=== PATIENT | female | born 1990 | race Caucasian/White ===

== ENCOUNTER 2021-11-15 08:00 | Outpatient (CLI) | payer OTHER ==
--- NOTE | 2021-11-15 22:02 | XRAY Report ---
PROCEDURE: Finger(s) RT INDICATIONS: FINGER PAIN, RIGHT 4TH DIGIT TECHNIQUE: AP hand, 2 views of the fourth finger(s) acquired. COMPARISON: None FINDINGS: Bones: Minimally displaced, intra-articular fractures can be seen involving the proximal base of the middle phalanx of the fourth finger, which is only seen on the lateral image. The fracture lines have a subacute appearance. No suspicious bony lesions. Soft tissues: No suspicious soft tissue calcifications. IMPRESSION: Minimally displaced intra-articular fractures can be seen involving the proximal base of the middle p halanx of the fourth finger. Reviewed by: Jarvis Vo MD on 11/15/2021 9:01 PM STEWART Approved by: Jarvis Vo MD on 11/15/2021 9:01 PM STEWART Station ID: [id number]
== END 2021-11-15 23:59 | disposition home or self-care (01) ==
LOC: DI.N 08:00
PROVIDERS: ATTEND Nurse Practitioner Family
DX: S62.624A Displaced fracture of middle phalanx of right ring finger, initial encounter for closed fracture (principal)

== ENCOUNTER 2021-12-08 09:00 | Emergency (ER) | payer OTHER ==
[2021-12-08] MEDS ORDERED: ONDANSETRON ODT 4 MG TABLET TL STA (11:47)
[2021-12-08 11:50] VITALS: BP 140/91
--- NOTE | 2021-12-08 11:55 | ED Physician Documentation ---
History of Present Illness - Stated complaint Stated Complaint: MHE - Chief complaint Chief Complaint: Abd Pain - Additonal information Additional information: 31-year-old female presents emergency department for evaluation of depression, nausea and anorexia. She states that she has a longstanding history of depression but she has never had thoughts of self-harm to herself. She went to a [employer] last night drink heavily and consumed a large amount of weed. When she woke up this morning she was not feeling well and was quite nauseated. She felt her depression was worse but did not explicitly want to hurt herself. She is worried because she really has no appetite so she comes to the emergency department. Denies possibility of as her is deployed and she has not been sexually active for a number of months. Review of Systems Constitutional: denies: Fever, Chills Eyes: reports: Reviewed and negative Nose: reports: Reviewed and negative Throat: reports: Reviewed and negative Cardiac: reports: Reviewed and negative Respiratory: reports: Reviewed and negative GI: reports: Nausea. denies: Vomiting, Constipation Neurologic: reports: Reviewed and negative Psychiatric: reports: Depressed. denies: Suicidal, Homicidal, Hallucinations, Delusions, Anxiety PD PAST MEDICAL HISTORY - Present Medications Home Medications: Ambulatory Orders Medication Instructions Recorded Confirmed Ondansetron Odt [Zofran Odt] 4 mg TL Q6H PRN #10 tablet 12/08/21 - Allergies Allergies/Adverse Reactions: Allergies Allergy/AdvReac Type Severity Reaction Status Date / Time No Known Drug Allergies Allergy Verified 12/08/21 09:24 PD ED PE NORMAL - General General: Alert and oriented X 3, No acute distress, Well developed/nourished (Obese) - HEENT HEENT: Atraumatic, Moist mucous membranes - Neck Neck: Supple, no meningeal sign, No adenopathy - Cardiac Cardiac: RRR, No murmur - Respiratory Respiratory: No respiratory distress, Clear bilaterally - Abdomen Abdomen: Normal bowel sounds, Soft, Non tender - Female Female : Deferred, Pt declined - Derm Derm: Normal color, Warm and dry - Extremities Extremities: No deformity, No tenderness to palpate, Normal ROM s pain - Neuro Neuro: Alert and oriented X 3 Eye Opening: Spontaneous Motor: Obeys Commands Verbal: Oriented GCS Score: 15 Results - Vitals Vitals: Vital Signs - 24 hr 12/08/21 12/08/21 09:18 11:49 Temperature 36.0 C L 36.6 C Heart Rate 110 H 87 Respiratory 20 16 Rate Blood Pressure 165/88 H 140/91 H O2 Saturation 98 100 Oxygen O2 Source Room air PD MEDICAL DECISION MAKING - ED course Complexity details: considered differential, d/w patient ED course: 31-year-old female presents emergency department with anorexia and nausea after a heavy night of drinking and cannabis consumption. Initial triage note indicates concern for self-harm though patient is quite adamant with this provider that she does not want to harm herself. She simply does not feel well. She is administered 8 mg of Zofran and on reassessment tolerating sips of clear liquids. She does not wish to remain in the emergency department for mental health evaluation. She clearly has capacity to make this decision and I do not feel it is important to compel her to stay. She reports that she has good follow-up with [facility] and there are a lot of support services for spouses which she is going to engage in. She was told that if nausea worsened she could return to the ER if any thoughts of self-harm occurred she could return to the ER. She is comfortable with discharge home Departure - Departure Disposition: 01 Home, Self Care Clinical Impression: Nausea Depression Qualifiers: Depression Type: unspecified Qualified Code(s): F32.A - Depression, unspecified Condition: Stable Record reviewed to determine appropriate education?: Yes Prescriptions: Ondansetron Odt [Zofran Odt] 4 mg TL Q6H PRN #10 tablet PRN Reason: Nausea / Vomiting Comments: Kacy you are seen today in the emergency department after a night of heavy drinking and cannabis consumption. You presented somewhat depressed but did not end Dors that you had thoughts of harming yourself. Anorexia can be common and depression and can certainly be worse after heavy drinking. You were given some Zofran here in the emergency department Over the next 24 hours I recommend frequent sips of clear liquids such as 7-Up, nazario braxton water, juice or Gatorade. I am sending a prescription for some Zofran to the [facility] in [place]. I do recommend that you follow-up with your primary providers for evaluation of your depression. There are a lot of [employer] resources for spouses that are deployed which you may find very helpful. If at any point you feel unsafe please return immediately to the ER for a second evaluation.
== END 2021-12-08 12:03 | disposition home or self-care (01) ==
LOC: ED 09:00
DX: F32.A Depression, unspecified (principal); R11.0 Nausea
CPT/HCPCS: 99282; Q0162

== ENCOUNTER 2022-01-07 10:15 | Outpatient (CLI) | payer OTHER ==
--- NOTE | 2022-01-07 16:33 | XRAY Report ---
PROCEDURE: Finger(s) RT INDICATIONS: RIGHT 4TH FINGER FX TECHNIQUE: AP hand, 3 views of the 4 finger(s) acquired. COMPARISON: X-ray finger 11/15/2021 FINDINGS: Bones: There has been interval healing with stable alignment of previous fracture identified at the b ase of the fourth middle phalanx with intra-articular extension. No suspicious bony lesions. Soft tissues: No suspicious soft tissue calcifications. IMPRESSION: Interval healing with less prominent appearance of fracture lucencies of intra-articular middle phala nx fracture. Reviewed by: Zahira Lewis MD on 01/07/2022 4:31 PM PDT Approved by: Zahira Lewis MD on 01/07/2022 4:31 PM PDT Station ID: [id number]
== END 2022-01-07 10:16 | disposition home or self-care (01) ==
LOC: DI.WOS 10:15
PROVIDERS: ATTEND Orthopaedic Surgery
DX: S62.654D Nondisplaced fracture of middle phalanx of right ring finger, subsequent encounter for fracture with routine healing (principal)

== ENCOUNTER 2022-04-17 08:58 | Emergency (ER) | payer OTHER ==
[2022-04-17] MEDS ORDERED: KETOROLAC 30 MG/ML VIAL IVP STA (09:53)
[2022-04-17] MEDS ORDERED: diphenhydrAMINE INJ 50 MG/ML VIAL IVP STA (09:53)
[2022-04-17] MEDS ORDERED: PROCHLORPERAZINE 10 MG/2 ML VIAL IVP STA (09:53)
[2022-04-17] MEDS ORDERED: SODIUM CHLORIDE 0.9% 1,000 ML IV STA (09:53)
[2022-04-17] MEDS ORDERED: DEXAMETHASONE 10 MG/ML VIAL IVP STA (09:53)
--- NOTE | 2022-04-17 09:56 | ED Physician Documentation ---
PD HPI HEADACHE - Stated complaint Stated Complaint: NAUSEA/MIGRAINE - Chief complaint Chief Complaint: Neuro - History obtained from History obtained from: Patient, Family - History of Present Illness Timing - onset: Enter time (529), Today Timing - onset during: Sleep Timing - duration: Hours Timing - details: Abrupt onset, Still present Worst headache ever?: No: Worst headache ever? Location: Other (top) Quality: Like head is exploding Associated symptoms: Stiff neck, Nausea, Vomiting. No: Fever, Weakness, Numbness, Syncope, Seizure, Eye pain, Vision changes Improved by: Rest, Dark room, Quiet, Meds Worsened by: Light, Noise, Moving Similar symptoms before: Diagnosis (migraine) Recently seen: Other (urgent care.) - Additional information Additional information: 31-year-old Andrew Leblanc has a history of migraine headaches and she woke this morning at 5:30 AM with a headache nausea and vomiting. She took her rizatriptan and Zofran without change in her symptoms. She has had some chills and sweats and overall body pain associated with this. She has had to have migraine rescue previously. She gets migraines about once every 2 to 3 months. She has been in to see the urgent care about neck stiffness about 1 month ago and was given a shot and something to drink. She has had steady improvement but continues to have some stiffness to her neck. Review of Systems Constitutional: reports: Sweats. denies: Fever Eyes: reports: Photophobia. denies: Decreased vision Ears: denies: Ear pain Nose: denies: Rhinorrhea / runny nose, Congestion Throat: denies: Sore throat Cardiac: denies: Chest pain / pressure, Palpitations Respiratory: denies: Dyspnea, Cough, Wheezing GI: reports: Nausea, Vomiting. denies: Abdominal Pain, Constipation, Diarrhea : denies: Dysuria, Frequency Skin: denies: Rash Musculoskeletal: reports: Neck pain. denies: Back pain, Extremity pain PD PAST MEDICAL HISTORY - Present Medications Home Medications: Ambulatory Orders Medication Instructions Recorded Confirmed Ondansetron Odt [Zofran Odt] 4 mg TL Q6H PRN #10 tablet 12/08/21 04/17/22 PARoxetine [Paxil] 10 mg PO DAILY 04/17/22 04/17/22 - Allergies Allergies/Adverse Reactions: Allergies Allergy/AdvReac Type Severity Reaction Status Date / Time No Known Drug Allergies Allergy Verified 04/17/22 09:08 PD ED PE NORMAL - Vitals Vital signs reviewed: Yes (hypertnesive ) - General General: Alert and oriented X 3, No acute distress, Well developed/nourished - HEENT HEENT: Atraumatic, PERRL, EOMI - Neck Neck: Supple, no meningeal sign, No bony TTP, Other (mild tenderness to the paraspinous muscles of the neck bilat) - Cardiac Cardiac: RRR, No murmur - Respiratory Respiratory: No respiratory distress, Clear bilaterally - Abdomen Abdomen: Normal bowel sounds, Soft, Non tender, Non distended, No organomegaly - Back Back: No CVA TTP, No spinal TTP - Derm Derm: Normal color, Warm and dry, No rash - Extremities Extremities: No deformity, No edema - Neuro Neuro: Alert and oriented X 3, prime minister 2-12 intact, No motor deficit, No sensory deficit, Normal speech Eye Opening: Spontaneous Motor: Obeys Commands Verbal: Oriented GCS Score: 15 - Psych Psych: Normal mood, Normal affect Results - Vitals Vitals: Vital Signs - 24 hr 04/17/22 09:05 Temperature 36.5 C Heart Rate 88 Respiratory 16 Rate Blood Pressure 137/98 H O2 Saturation 99 Oxygen O2 Source Room air PD MEDICAL DECISION MAKING - ED course Complexity details: reviewed old records, re-evaluated patient, considered differential, d/w patient, d/w family ED course: 31-year-old female with a history of migraines has a migraine again today and she is provided a migraine rescue with saline, Compazine, Benadryl, Toradol and dexamethasone. Departure - Departure Disposition: 01 Home, Self Care Clinical Impression: Migraine Qualifiers: Migraine type: without aura Status migrainosus presence: without status migrainosus Intractability: not intractable Qualified Code(s): G43.009 - Migraine without aura, not intractable, without status migrainosus Condition: Stable Instructions: ED Headache Migraine Follow-Up: Anh Gross PA-C [Primary Care Provider] -
[2022-04-17 10:57] VITALS: BP 131/80
== END 2022-04-17 10:56 | disposition home or self-care (01) ==
LOC: ED 08:58
DX: G43.009 Migraine without aura, not intractable, without status migrainosus (principal)
CPT/HCPCS: 36415; 96374; 96375; 99282; 99285; J1200

== ENCOUNTER 2022-09-25 14:11 | Outpatient (CLI) | payer OTHER ==
[2022-09-25 14:31] LABS: BASOPHILS # (AUTO) 0.1 10^3/uL (0.0-0.1); BASOPHILS % (AUTO) 0.7 %; EOSINOPHILS # (AUTO) 0.3 10^3/uL (0.0-0.7); HCT - HEMATOCRIT 49.6 % (37.0-47.0); HGB - HEMOGLOBIN 15.7 g/dL (12.0-16.0); LYMPHOCYTES # (AUTO) 2.7 10^3/uL (1.5-3.5); LYMPHOCYTES % (AUTO) 32.9 %; MEAN CORPUSCULAR HEMOGLOBIN 27.6 pg (27.0-31.0); MEAN CORPUSCULAR HGB CONC 31.7 g/dL (32.0-36.0); MEAN CORPUSCULAR VOLUME 87.3 fL (81.0-99.0); MEAN PLATELET VOLUME 9.3 fL (7.9-10.8); MONOCYTES # (AUTO) 0.6 10^3/uL (0.0-1.0); MONOCYTES % (AUTO) 7.4 %; NEUTROPHILS # (AUTO) 4.5 10^3/uL (1.5-6.6); NEUTROPHILS % (AUTO) 54.8 %; PLT - PLATELET COUNT 324 10^3/uL (130-450); RED BLOOD COUNT 5.68 10^6/uL (4.20-5.40); RED CELL DISTRIBUTION WIDTH 13.6 % (12.0-15.0); WHITE BLOOD COUNT 8.2 x10^3/uL (4.8-10.8)
[2022-09-25 14:50] LABS: ALBUMIN 4.2 g/dL (3.2-5.5); ALBUMIN/GLOBULIN RATIO 1.2 (1.0-2.2); BILIRUBIN,TOTAL 1.1 mg/dL (0.2-1.0); CALCIUM 9.5 mg/dL (8.5-10.3); CREATININE 0.7 mg/dL (0.4-1.0); POTASSIUM 4.8 mmol/L (3.5-5.0); TOTAL PROTEIN 7.7 g/dL (6.7-8.2)
[2022-09-25 14:55] LABS: THYROID STIMULATING HORMONE 0.33 uIU/mL (0.34-5.60)
[2022-09-25 15:27] LABS: FREE T4 (FREE THYROXINE) 0.78 ng/dL (0.58-1.64)
--- NOTE | 2022-09-25 16:51 | XRAY Report ---
PROCEDURE: Cervical Spine 2 View INDICATIONS: NECK PAIN,CHRONIC TECHNIQUE: 3 view(s) of the cervical spine were acquired. COMPARISON: None. FINDINGS: Bones: No fractures or dislocations to the C7 level. The lateral masses of C1 appear intact on the odontoid view. No suspicious bony lesions. Minimal-mild multilevel degenerative changes with disc h eight loss and facet arthropathy. Soft tissues: No prevertebral soft tissue swelling. IMPRESSION: Minimal-mild multilevel degenerative changes of the cervical spine. If symptoms persist, follow-up radiographs and/or CT or MRI may be helpful for further evaluation. Reviewed by: Sj Santana MD on 09/25/2022 4:50 PM PDT Approved by: Sj Santana MD on 09/25/2022 4:50 PM PDT Station ID: [id number]
== END 2022-09-25 14:12 | disposition home or self-care (01) ==
LOC: DI 14:11
PROVIDERS: ATTEND Physician Assistant
DX: M47.812 Spondylosis without myelopathy or radiculopathy, cervical region (principal); F41.8 Other specified anxiety disorders
CPT/HCPCS: 36415; 80053; 84439; 84443; 85025

== ENCOUNTER 2022-10-17 12:40 | Outpatient (CLI) | payer OTHER ==
[2022-10-17 17:51] LABS: BASOPHILS # (AUTO) 0.1 10^3/uL (0.0-0.1); BASOPHILS % (AUTO) 0.9 %; EOSINOPHILS # (AUTO) 0.4 10^3/uL (0.0-0.7); EOSINOPHILS % (AUTO) 4.2 %; HCT - HEMATOCRIT 48.2 % (37.0-47.0); LYMPHOCYTES # (AUTO) 2.5 10^3/uL (1.5-3.5); LYMPHOCYTES % (AUTO) 28.5 %; MEAN CORPUSCULAR HEMOGLOBIN 27.5 pg (27.0-31.0); MEAN CORPUSCULAR HGB CONC 31.1 g/dL (32.0-36.0); MEAN CORPUSCULAR VOLUME 88.3 fL (81.0-99.0); MONOCYTES # (AUTO) 0.7 10^3/uL (0.0-1.0); MONOCYTES % (AUTO) 8.5 %; NEUTROPHILS % (AUTO) 57.7 %; PLT - PLATELET COUNT 372 10^3/uL (130-450); RED BLOOD COUNT 5.46 10^6/uL (4.20-5.40); RED CELL DISTRIBUTION WIDTH 13.4 % (12.0-15.0); WHITE BLOOD COUNT 8.6 x10^3/uL (4.8-10.8)
[2022-10-17 18:04] LABS: CALCIUM 9.3 mg/dL (8.5-10.3); CREATININE 0.6 mg/dL (0.4-1.0); POTASSIUM 4.3 mmol/L (3.5-5.0)
[2022-10-17 21:12] LABS: ESTIMATED AVERAGE GLUCOSE 111 mg/dL (70-100); HEMOGLOBIN A1c% 5.5 % (4.27-6.07)
== END 2022-10-17 12:41 | disposition home or self-care (01) ==
LOC: LAB.N 12:40
PROVIDERS: ATTEND Physician Assistant
DX: R73.01 Impaired fasting glucose (principal); D75.1 Secondary polycythemia; Z83.2 Family history of diseases of the blood and blood-forming organs and certain disorders involving the immune mechanism
CPT/HCPCS: 36415; 80048; 82668; 83036; 85025

== ENCOUNTER 2022-11-26 04:15 | Emergency (ER) | payer OTHER ==
--- NOTE | 2022-11-26 04:34 | ED Physician Documentation ---
PD HPI HEADACHE - Stated complaint Stated Complaint: HEADACE - Chief complaint Chief Complaint: Heent - History obtained from History obtained from: Patient - History of Present Illness Worst headache ever?: No: Worst headache ever? - Additional information Additional information: Patient provides HPI. Patient woke from sleep at 2 AM this morning with global headache c/w her previous migraine headaches. The headache is associated with nausea and vomiting, photophobia, phonophobia. She tried to take rizatriptan but vomited. This is not the worst headache of her life and is similar to previous migraines for her. Review of Systems Constitutional: denies: Fever Eyes: reports: Photophobia. denies: Loss of vision, Decreased vision GI: reports: Nausea, Vomiting. denies: Abdominal Pain Musculoskeletal: denies: Neck pain Neurologic: reports: Headache. denies: Generalized weakness, Focal weakness, Numbness PD PAST MEDICAL HISTORY - Past Medical History Past Medical History: Yes Neuro: Migraines - Present Medications Home Medications: Ambulatory Orders Medication Instructions Recorded Confirmed Ondansetron Odt [Zofran Odt] 4 mg TL Q6H PRN #10 tablet 12/08/21 04/17/22 PARoxetine [Paxil] 10 mg PO DAILY 04/17/22 04/17/22 - Allergies Allergies/Adverse Reactions: Allergies Allergy/AdvReac Type Severity Reaction Status Date / Time No Known Drug Allergies Allergy Verified 11/26/22 04:29 - Living Situation Living Arrangement: reports: At home PD ED PE NORMAL - Vitals Vital signs reviewed: Yes - General General: Alert and oriented X 3, Well developed/nourished, Other (appears uncomfortable. lights are off for patient comfort by her request and she is covering her eyes with her hands) - HEENT HEENT: PERRL, EOMI - Neck Neck: Supple, no meningeal sign - Cardiac Cardiac: RRR, No murmur - Respiratory Respiratory: No respiratory distress, Clear bilaterally - Neuro Neuro: Alert and oriented X 3, client administrator 2-12 intact, Normal speech Eye Opening: Spontaneous Motor: Obeys Commands Verbal: Oriented GCS Score: 15 Results - Vitals Vitals: Vital Signs - 24 hr 11/26/22 11/26/22 04:25 06:15 Temperature 36.2 C L Heart Rate 74 88 Respiratory 19 19 Rate Blood Pressure 127/93 H 135/82 H O2 Saturation 98 99 Oxygen O2 Source Room air PD Medical Decision Making - ED course Complexity details: reviewed old records (reviewed previous [facility] ED visit (2021) which was also for migraine BUSTILLO), considered differential, d/w patient ED course: On previous visit to this ED for migraine BUSTILLO, she was given compazine, NS, benadryl, toradol, and decadron. I reviewed these with her and she confirms that this regimen had good effect and thus these medications are given at this time (1 liter IV NS, 10mg compazine, 25 mg IV benadryl, 30mg IV toradol, and 10mg IV decadron). On reevaluation, she reports excellent symptom relief. She says she typically has rapid resolution once the symptoms of her migraine are under con trol as they are at this time, and thus she declines further medications and says she does not need any prescriptions. Departure - Departure Disposition: 01 Home, Self Care Clinical Impression: Migraine Qualifiers: Migraine type: unspecified Status migrainosus presence: without status migrainosus Intractability: not intractable Qualified Code(s): G43.909 - Migraine, unspecified, not intractable, without status migrainosus Condition: Good Instructions: ED Headache Migraine Forms: Activity restrictions Discharge Date/Time: 11/26/22 06:22
[2022-11-26] MEDS ORDERED: SODIUM CHLORIDE 0.9% 1,000 ML IV STA (04:45)
[2022-11-26] MEDS ORDERED: DEXAMETHASONE 10 MG/ML VIAL IVP STA (04:46)
[2022-11-26] MEDS ORDERED: KETOROLAC 30 MG/ML VIAL IVP STA (04:46)
[2022-11-26] MEDS ORDERED: diphenhydrAMINE INJ 50 MG/ML VIAL IVP STA (04:46)
[2022-11-26] MEDS ORDERED: PROCHLORPERAZINE 10 MG/2 ML VIAL IVP STA (04:46)
[2022-11-26 06:18] VITALS: BP 135/82
== END 2022-11-26 06:22 | disposition home or self-care (01) ==
LOC: ED 04:15
DX: G43.909 Migraine, unspecified, not intractable, without status migrainosus (principal)
CPT/HCPCS: 96374; 96375; 99283; J1200

== ENCOUNTER 2023-01-22 14:16 | Outpatient (CLI) | payer OTHER ==
--- NOTE | 2023-01-22 15:14 | Sleep Patient Instructions ---
Sleep Center Visit Summary - Patient Visit Information Reason for Visit: Initial consult for evaluation of sleep disordered breathing and other sleep issues. - Patient Instructions Instructions Attached: Sleep Study, Sleep Clinic Visit, Sleep Study Home Monitor Additional Instructions: You will be completing a sleep study, either an in-lab polysomnography (PSG) or home sleep study (HST). You will follow-up in the sleep care office after the sleep study is completed to hear the results and talk about therapy, if needed. You will be called by our office staff to schedule this appointment, but you may contact us with any questions. - Clinic Information Contact: [facility] [address] [place] [address] [email or web address] T: [phone]
--- NOTE | 2023-01-22 15:20 | SLEEP CARE CONSULTATION ---
Information from patient questionnaire entered by Jannette Galeano. I have reviewed and concur with the information entered by Jannette Galeano. This document represents the service I personally performed and the decisions made by me, Eloisa Brandt ARNP. History of Present Illness Service Date and Time: 01/22/2023 1416 Reason for Visit: New patient Chief Complaint: reports: Snoring, Other (HIGH LEVEL ON LABS RULING OUT SLEEP APNEA) Date of Onset: N/A Usual bedtime: 11PM Time it takes to fall asleep: 10MIN IF RACING THOUGHTS 60MIN BUT NOT OFTEN Snores at night: Yes Observed to quit breathing while asleep: No Sleeps alone due to snoring: No Number of times waking at night: 2 Reasons for waking at night: reports: Bathroom. denies: Choking, Gasping for air Toss, Turn, or Twitch while sleeping: No Recalls having dreams: No (rarely remembers dreaming, very random things) Usually gets out of bed at: 8-9 Feels refreshed in the morning: Yes (enough) Morning headache: Yes (daily; last about an hour to 1.5 hrs; "clenches neck/shoulders") Sleepy or fatigued during the day: Yes (associates with her severe depression) Ever fallen asleep while driving: No Takes day naps: No Dreams during day naps: No Prior sleep studies: No Additional HPI information: I had the pleasure of seeing GERARD HADDAD today regarding the possibility of her having a sleep disorder. She states that she saw her PCP and had labs and it showed high erythrocytes. She states her father has polycythemia. She states her has told her that she snores but that it is a normal snore. She states her mother snores and has pauses in breathing when sleeping but has never been through testing. She states she wakes up with a headache every morning that is gone within 90 minutes. She feels she is mostly rested when she gets up in the morning. She normally sleep between 8-11 hours every night. She gets up 1-2 times a night for the bathroom. She rarely remembers dreaming. She was recently diagnosed with ADHD and started on Adderall. 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 Patient is and lives in [place]. Have you smoked in the past 12 months: Yes Cigarettes per day (20/pack): 8 Years of smokin Smoking Pack Years: 1.6 Alcohol use: No Caffeine use: Yes Caffeine amount and frequency: AIRAM TEA in morning, 1 Family History Family history of sleep disordered breathing: Yes Family Hx Sleep Apnea: Mother: Snoring, Sleep apnea - Untreated, Father: Snoring, Sleep apnea - Untreated, Grandparent: Sleep apnea - Untreated Allergies and Home Medications Known drug allergies: No Drug allergies reviewed: Yes Home medication list reviewed: Yes Allergy and home medication list: Allergies No Known Drug Allergies Allergy (Verified 01/21/23 10:44) Medications: Paroxetine 30 mg daily Adderall 20 mg daily Review of Systems Weight gain over past 5 years: 40 Weight loss over past 5 years: 50, down now Cardiovascular: denies: high blood pressure Gastrointestinal: denies: heartburn Urinary: reports: urgency Neurological: reports: headaches. denies: seizure, head trauma Psychiatric: reports: Attention Deficit Hyperactivity, anxiety, depression Ear/Nose/Throat: reports: wisdom teeth removed. denies: injury to nose, tonsillectomy Endocrine: denies: thyroid disease Musculoskeletal: reports: neck pain Immunologic: denies: allergies to food or environment Physical Exam Vital signs obtained and entered by: JANNETTE Gonzalez MA Blood Pressure: 112/74 (LEFT ARM) Cuff size: long Heart Rate: 89 O2 Saturation: 97 Height: 5 ft 6 in Weight: 258 lb 9.6 oz Body Mass Index: 41.7 BMI Classification: Morbidly Obese Neck circumference: 16.25 Mouth and throat: narrow oropharynx Soft palate: long Hard palate: normal Uvula: normal Uvula visualization: 25% Mallampati Class III Tongue: enlarged in size with teeth zapien on lateral edges Tonsils: small Neck: normal w/o lymphadenopathy or thyromegaly Heart: regular rate and rhythm Lungs: clear bilaterally Impression and Plan 1. Suspected Obstructive Sleep Apnea-Hypopnea Syndrome, as suggested by a history of irregular snoring, morning headache and cognitive impairment. Narrow oropharynx and obesity are common predisposing factors for obstructive sleep apnea-hypopnea syndrome. I recommend proceeding to polysomnography to confirm the diagnosis and to assess severity. If the patient has significant sleep disordered breathing, a manual CPAP titration study will also be performed to find the optimal treatment pressure. I informed the patient of what the sleep studies involve and after some discussion, obtained agreement to proceed. The pathophysiology of obstructive sleep apnea-hypopnea syndrome was discussed with the patient and health risks of cardiovascular and cerebrovascular disease if not treated. Risks of drowsy driving discussed in detail and patient advised to avoid long distance driving and to door puller at the first sign of drowsiness. Patient agreed to plan. * Schedule polysomnography. * Avoid long distance driving or driving when feeling sleepy. * Avoid alcohol, sedative and muscle relaxant around bedtime. * Attempt to lose weight. * Review instructions provided by trained office staff on how to prepare for the sleep study. * Return for follow-up after sleep study completed. Counseling Topics: Weight loss health impact Visit Type: In Office Time Spent with Patient (minutes): 30 Provider Statement: I spent 100% of the Face to Face Visit with the patient with greater than 50% spent counseling the patient and coordination of care.
[2023-01-22 15:24] VITALS: BP 112/74; O2SAT 97
== END 2023-01-22 14:17 | disposition home or self-care (01) ==
LOC: SC 14:16
PROVIDERS: ATTEND Nurse Practitioner Family
DX: R06.83 Snoring (principal); R51.9 Headache, unspecified; R41.89 Other symptoms and signs involving cognitive functions and awareness; F90.9 Attention-deficit hyperactivity disorder, unspecified type; Z79.899 Other long term (current) drug therapy; F17.210 Nicotine dependence, cigarettes, uncomplicated; E66.01 Morbid (severe) obesity due to excess calories; Z68.41 Body mass index [BMI] 40.0-44.9, adult
CPT/HCPCS: 99203; 99212

== ENCOUNTER 2023-03-30 20:19 | Outpatient (CLI) | payer OTHER | END 2023-03-30 20:20 | disposition home or self-care (01) | LOC: SC 20:19 | PROVIDERS: ATTEND Nurse Practitioner Family | DX: R06.83 Snoring (principal); R51.9 Headache, unspecified; R53.83 Other fatigue; E66.01 Morbid (severe) obesity due to excess calories; F32.A Depression, unspecified; Z68.41 Body mass index [BMI] 40.0-44.9, adult | CPT/HCPCS: 95810 ==

== ENCOUNTER 2023-05-20 13:43 | Outpatient (CLI) | payer OTHER ==
--- NOTE | 2023-05-20 14:35 | Sleep Patient Instructions ---
Sleep Center Visit Summary - Patient Visit Information Reason for Visit: Sleep study follow-up - Patient Instructions Instructions Attached: Snoring Tips Prevent Additional Instructions: Your sleep study today was negative for significant sleep disordered breathing. However, you did have elevated respiratory episodes when sleeping on your back. You should avoid sleeping on your back to control these respiratory episodes. You were found to have episodes of snoring. There are different ways to control snoring including weight loss, oral devices made by a dentist or surgical options through ENT specialist. You should not use oral devices that do not fit properly because they can affect your bite. You should also check insurance coverage of oral devices for snoring because they may not be cover well. You may obtain a referral to an ENT specialist through your primary provider. Follow-up as needed. - Clinic Information Contact: [facility] [address] [place] [address] [email or web address] T: [phone]
--- NOTE | 2023-05-20 14:39 | SLEEP CARE CONSULTATION ---
Information from patient questionnaire entered by Jannette Galeano. I have reviewed and concur with the information entered by Jannette Galeano. This document represents the service I personally performed and the decisions made by , Eloisa Brandt ARNP. History of Present Illness Service Date and Time: 05/20/2023 1343 Initial [place] Sleepiness Scale score: 5 (01/22/23) Current [place] Sleepiness Scale score: 0 (05/20/23) Additional HPI information: GERARD HADDAD returns for follow up and results of the recently performed polysomnography. The patient was informed of the following findings: No significant sleep disordered breathing with an average AHI of 1.5 and sincere oxygen saturation of 90%. She had very minimal supine sleep during study with an elevated supine AHI of 12. I explained the pathophysiology behind obstructive sleep apnea. Patient does not have sleep apnea and was advised how weight gain could increase the risk of developing sleep apnea in the future. I strongly encouraged the patient to lose weight. Patient does not have significant sleep disordered breathing but has elevated AHI in supine position so advised positional therapy. Methods to achieve positional management therapy were discussed; such as, positioning with pillows, wearing a T-shirt with tennis balls sewn into the back or commercially available products. Patient counseled not drink alcohol less than 4 hours before bedtime as it can increase snoring and apnea. Patient was cautioned about risks of drowsy driving until sleepiness symptoms resolve. Patient denies drowsy driving. Sleep Study - Results Type of Sleep Study: Polysomnography (COMPLETED 03/30/23) Prior sleep studies: No Polysomnography/Home Sleep Study results: IMPRESSION: The quality of the study is good. The patient had minimally reduced sleep efficiency. The sleep architecture was normal. Respiratory monitoring showed no sleep disordered breathing (AHI = 1.5) or hypoxia (sincere oxygen saturation of 90%). There was minimal supine sleep (supine AHI = 12.0; non-supine = 1.32). Snore was light to moderate in intensity. There was no significant periodic leg movement of sleep. Cardiac rhythm was normal sinus rhythm without significant arrhythmia. No abnormal behavior (parasomnia) observed during the night. Allergies and Home Medications Known drug allergies: No Drug allergies reviewed: Yes Home medication list reviewed: Yes (Adderall 30 mg ER daily; Venlafaxine 150 mg daily) Allergy and home medication list: Allergies No Known Drug Allergies Allergy (Verified 12/05/23 16:02) Review of Systems Review of systems same as previous: No (ADHD) Physical Exam Vital signs obtained and entered by: JANNETTE Gonzalez MA Blood Pressure: 120/80 (LEFT ARM) Cuff size: regular Heart Rate: 82 O2 Saturation: 98 Height: 5 ft 6 in Weight: 238 lb Body Mass Index: 38.4 BMI Classification: Obese Impression and Plan Snoring but no significant sleep disordered breathing. However, she had an elevated supine AHI with minimal data obtained during night of study. She was advised to avoid sleeping supine. Patient advised that often weight loss will reduce snoring as well as apnea risk. An oral appliance can also be used for snoring. This would require a dental consultation. Patient cautioned not to use other online appliances as can cause bite issues. Patient is advised to check if insurance will cover. An ENT consult can also be helpful to determine if any other treatment is an option. 2. Obesity, unspecified. Currently patients BMI is 38.4. Obesity increases the risk of apnea, CPAP pressure requirements and overall health risks especially cardiovascular and diabetes. Thus patient is advised to lose weight. * Attempt to lose weight * Avoid alcohol consumption near bedtime * The patient is cautioned about driving until sleepiness is completely resolved. * Return as needed for follow up. Counseling Topics: Sleeping position, Weight loss health impact Follow up with Sleep Care in: as needed Visit Type: In Office Time Spent with Patient (minutes): 16 Provider Statement: I spent 100% of the Face to Face Visit with the patient with greater than 50% spent counseling the patient and coordination of care.
[2023-05-20 14:46] VITALS: BP 120/80; O2SAT 98
== END 2023-05-20 13:44 | disposition home or self-care (01) ==
LOC: SC 13:43
PROVIDERS: ATTEND Nurse Practitioner Family
DX: R06.83 Snoring (principal); E66.9 Obesity, unspecified; Z68.38 Body mass index [BMI] 38.0-38.9, adult
CPT/HCPCS: 99212; 99213